=== PATIENT | female | born 1995 | race Caucasian/White ===

== ENCOUNTER 2021-12-07 18:04 | Emergency (ER) | payer OTHER ==
[~2021-12-07] VITALS: Ht 170.2 cm; Wt 81.6 kg
[2021-12-07 18:26] LABS: *BILIRUBIN,URIN NEGATIVE (NEGATIVE); *BLOOD, URINE NEGATIVE (NEGATIVE); *CLARITY,URINE SLIGHTLY CLOUDY (CLEAR); *COLOR,URINE YELLOW (YELLOW); *KETONES,URINE 4+ (NEGATIVE); *UROBILINOGEN,URINE 0.2 E.U./dl (NORMAL); LEUKOCYTE ESTERASE ,URINE NEGATIVE (NEGATIVE); NITRITE, URINE NEGATIVE (NEGATIVE); UGLUCOSE NEGATIVE (NEGATIVE)
[2021-12-07 18:27] LABS: *URINE HCG, QUAL NEG (NEGATIVE)
--- NOTE | 2021-12-07 18:36 | NUR ---
[email or web address], medical screening exam in progress
[2021-12-07] MEDS ORDERED: METR500T PO (18:43)
[2021-12-07] MEDS ORDERED: METRONIDAZOLE 500 MG TABLET PO ONE (18:45)
--- NOTE | 2021-12-07 18:52 | NUR ---
Patient discharged to home in stable condition with brisk steady gait. Written and verbal after care instructions given to patient. Patient verbalized understanding and compliance of instructions. Stressed follow up with primary doctor and hairspring vibrator or return to ER for worsening s/s.
[2021-12-07] MEDS ORDERED: METRONIDAZOLE 500 MG TABLET ONE (18:54)
== END 2021-12-07 18:52 | disposition home or self-care (01) ==
LOC: ER 18:11
DX: R30.0 Dysuria (principal)
CPT/HCPCS: 84703; A4663

== ENCOUNTER 2022-01-17 09:35 | Emergency (ER) | payer OTHER ==
[~2022-01-17] VITALS: Ht 170.2 cm; Wt 81.6 kg
[~2022-01-17 09:35] MED LIST: METR500T PO
[2022-01-17] MEDS ORDERED: diphenhydrAMINE 25 MG/10 ML UDC PO ONE (10:15)
[2022-01-17] MEDS ORDERED: MAG HYDROX/AL HYDROX/SIMETH 30 ML LIQUID UDC PO ONE (10:15)
[2022-01-17] MEDS ORDERED: MAG HYDROX/AL HYDROX/SIMETH 30 ML LIQUID UDC ONE (10:23)
[2022-01-17] MEDS ORDERED: diphenhydrAMINE 25 MG/10 ML UDC ONE (10:23)
[2022-01-17 10:41] LABS: HEMATOCRIT 34.5 % (31.2-41.9); MEAN CORPUSCULAR HEMOGLOBIN 29.8 uug (24.7-32.8); MEAN CORPUSCULAR VOLUME 89.2 fL (75.5-95.3); PLATELET COUNT (AUTO) 263 K/uL (179-408)
[2022-01-17 11:33] LABS: CARBON DIOXIDE 28 mmol/L (21-32); CHLORIDE 103 mmol/L (98-107); CREATININE 0.7 mg/dL (0.6-1.3); GLUCOSE 119 mg/dL (74-106); POTASSIUM 3.3 mmol/L (3.5-5.1); UREA NITROGEN, BLOOD 7 mg/dL (7-18)
[2022-01-17 11:39] LABS: ALANINE AMINOTRANSFERASE 39 U/L (14-59); ALKALINE PHOSPHATASE 77 U/L (50-136); ASPARTATE AMINOTRANSFERASE 16 U/L (15-37); BILIRUBIN,TOTAL 0.4 mg/dL (0.2-1.0); TOTAL PROTEIN, SERUM 7.2 g/dL (6.4-8.2)
[2022-01-17] MEDS ORDERED: DIPH12.56 PO (11:51)
[2022-01-17] MEDS ORDERED: MAG355OR18 PO (11:51)
--- NOTE | 2022-01-17 11:57 | NUR ---
Patient discharged to home in stable condition with brisk steady gait. Written and verbal after care instructions given. Patient verbalized understanding and compliance of instructions. Stressed follow up with primary doctor or return to ER for worsening s/s.
== END 2022-01-17 11:57 | disposition home or self-care (01) ==
LOC: ER 09:35
DX: K12.1 Other forms of stomatitis (principal); B97.89 Other viral agents as the cause of diseases classified elsewhere; F15.10 Other stimulant abuse, uncomplicated; F17.200 Nicotine dependence, unspecified, uncomplicated
CPT/HCPCS: 80053; 84702; 85025; 87536; 87806; 99283; Q0163; A4663